=== PATIENT | female | born 1965 | race Caucasian/White ===

== ENCOUNTER 2022-11-08 10:07 | Outpatient (CLI) | payer BC | END 2022-11-08 10:08 | disposition home or self-care (01) | LOC: BICMRI 10:07 | PROVIDERS: ATTEND Neurological Surgery | DX: G57.01 Lesion of sciatic nerve, right lower limb (principal); M54.50 Low back pain, unspecified; M76.01 Gluteal tendinitis, right hip | CPT/HCPCS: 72195 ==